=== PATIENT | female | born 1970 | race Caucasian/White ===

== ENCOUNTER 2016-11-02 11:43 | Emergency (ER) | payer OTHER ==
[~2016-11-02] VITALS: Ht 162.6 cm; Wt 95.3 kg
[~2016-11-02 11:43] MED LIST: ALBU1AER9 INH; LEVO150T9 PO; LEVO1TAB33 PO; VENL75CA PO
[2016-11-02 11:49] VITALS: BP 193/94; TEMP 37; Ht 162.6 cm; Wt 95.3 kg
[2016-11-02] MEDS ORDERED: ALBU18002 INH (12:06)
[2016-11-02 12:43] VITALS: PULSE 76; O2SAT 97
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
== END 2016-11-02 12:43 | disposition home or self-care (01) ==
LOC: C.EDB 11:44 → C.EDD 12:43
DX: R51 Headache (principal); M54.5 Low back pain; M54.2 Cervicalgia; V47.5XXA Car driver injured in collision with fixed or stationary object in traffic accident, initial encounter; J45.909 Unspecified asthma, uncomplicated; Z87.01 Personal history of pneumonia (recurrent)

== ENCOUNTER 2016-12-25 23:55 | Emergency (ER) | payer OTHER ==
[~2016-12-25] VITALS: Ht 162.6 cm; Wt 115.0 kg
[~2016-12-25 23:55] MED LIST changes: +ALBU18002 INH; -ALBU1AER9 INH; -LEVO1TAB33 PO
[2016-12-25 23:59] VITALS: TEMP 37.7; Ht 162.6 cm; Wt 115.0 kg
[2016-12-26] MEDS ORDERED: ACETAMINOPHEN 500 MG TAB PO STA (00:17)
[2016-12-26] MEDS ORDERED: SODIUM CHLORIDE 0.9% 1000ML 1,000 ML IV STA (00:17)
[2016-12-26] MEDS ORDERED: KETOROLAC TROMETHAMINE 30 MG/ML VIAL IV STA (00:17)
[2016-12-26 00:58] LABS: BASO % 0.4 %; BASO ABS # 0.02 K/uL (0-0.2); COMPLETE YES; EOS % 3.9 %; HEMATOCRIT 38.4 % (37-47); IG% 0.2 %; LYMPH ABS # 0.79 K/uL (1.2-3.4); MEAN CELL VOLUME 90.1 fL (80-100); MEAN CORPUSCULAR HEMOGLOBIN 31.5 pg (25-34); MEAN CORPUSCULAR HGB CONC 34.9 g/dl (32-36); MEAN PLATELET VOLUME 11.1 fL (7.4-10.4); MONO % 15.7 %; NEUT % 62.8 %; PLATELET COUNT 147 K/uL (130-400); RED BLOOD COUNT 4.26 M/uL (4.2-5.4); WHITE BLOOD COUNT 4.66 K/uL (4.8-10.8)
[2016-12-26 01:18] LABS: ALT/SGPT 43 U/L (12-78); AST/SGOT 22 U/L (15-37); BLOOD UREA NITROGEN 3 mg/dl (7-18); BUN/CREATININE RATIO 4.3 (10-20); CALCIUM 8.1 mg/dl (8.5-10.1); CARBON DIOXIDE 26 mmol/L (21-32); CHLORIDE 103 mmol/L (98-107); CREATININE 0.77 mg/dl (0.60-1.20); GLUCOSE 92 mg/dl (70-99); POTASSIUM 3.2 mmol/L (3.5-5.1); SODIUM 136 mmol/L (136-145)
[2016-12-26 01:23] LABS: ALB/GLOB RATIO 0.9 (0.9-2); ALKALINE PHOSPHATASE 118 U/L (45-117)
[2016-12-26 03:53] LABS: URINE APPEARANCE CLEAR (CLEAR); URINE BILIRUBIN NEG (NEG); URINE COLOR DK YELLOW; URINE EPITHELIAL CELL AUTO >30 /lpf (0-5); URINE NITRITE NEG (NEG); URINE PH 6.5 (4.5-7.5); URINE SPECIFIC GRAVITY 1.011 (1.000-1.030); UROBILINOGEN POS (NEG); ZZUR CULT IF INDIC CLEAN CATCH NO
[2016-12-26 03:56] LABS: MANUAL MICROSCOPIC REQUIRED? NO; REVIEW REQ? NO
--- NOTE | 2016-12-26 04:24 | EMERGENCY ROOM VISIT NOTE ---
History First contact with patient: 00:05 Chief Complaint: CHEST PAIN Stated Complaint: FEVER SINCE SAT 103, CHEST PAIN, DIZZY Nursing Triage Summary: patient reports sick since saturday,patient reports not eating,vomited once,patient reports chest pain since 0 History of Present Illness The patient is a 46 year old female who presents to the Emergency Room with complaints of fevers for the past 3 days. The patient states that she has been having fevers, decreased appetite and nausea for the past 3 days. She states that today, she developed pain across the chest and into the abdomen. She had one episode of vomiting a few days ago, but denies any vomiting at this time. She states it is a stabbing pain and goes from the left side of the chest into the upper abdomen and into the back. The fevers have been as high as 103.7F. She denies any headache, neck pain, shortness of breath, cough, urinary symptoms or changes in bowel movements. Review of Systems A complete 10 point review of systems was reviewed with the patient with pertinent positives and negatives as per history of present illness. All else were negative. Past Medical/Surgical History Medical Problems: (1) FAILED ABLATION Social History Smoking Status: Never Smoker Alcohol Use: none Marital Status: Occupation Status: employed Current/Historical Medications Scheduled Levothyroxine Sodium (Levothyroxine Sodium), 150 MCG PO QAM Venlafaxine Hcl (Effexor Xr), 75 MG PO DAILY Scheduled PRN Albuterol Sulfate (Proair Respiclick), 1-2 PUFFS INH Q4 PRN for SOB/Wheezing Allergies Coded Allergies: Thimerosal (Verified Allergy, Mild, eyes swelled shut for 3 days, 12/26/16) [place] (Verified Allergy, Unknown, SHORT NEEDLE P[place] BRANCHES, 12/26/16) Physical Exam Vital Signs Date Time Temp Pulse Resp B/P Pulse Ox O2 Delivery O2 Flow Rate FiO2 12/26/16 04:45 68 18 127/72 97 Room Air 12/26/16 02:28 76 18 138/77 98 Room Air 12/25/16 23:59 37.7 97 18 138/89 96 Room Air Physical Exam VITALS: Vitals are noted on the nurse's note and reviewed by myself. Vital signs stable. Temperature 37.7C GENERAL: This is a 46-year-old female, in no acute distress, nondiaphoretic, well-developed well-nourished. SKIN: The skin was without rashes. EARS: External auditory canals clear, tympanic membranes pearly diaz without erythema or effusion bilaterally. EYES: Pupils equal round and reactive to light and accommodation. Conjunctivae without injection, sclerae without icterus. MOUTH: Mucous membranes moist. Tonsils are not enlarged. Pharynx without erythema or exudate. NECK: Supple without nuchal rigidity. No lymphadenopathy. HEART: Regular rate and rhythm without murmurs gallops or rubs. LUNGS: Clear to auscultation bilaterally without wheezes, rales or rhonchi. No retractions or accessory muscle use. ABDOMEN: Positive bowel sounds x 4. Mild tenderness over the right upper quadrant. Negative Izquierdo sign. No guarding or rebound tenderness. NEURO: Patient was alert and oriented to person place and time. Medical Decision & Procedures ER Provider Diagnostic Interpretation: Chest x-ray interpretation: No infiltrates. No pneumothorax. No bony abnormalities. US RUQ: Echogenic hepatic parenchyma, suggesting fatty infiltration. Hepatomegaly. Suggestion of echogenic renal impairments. The due to medullary sponge kidney in the right clinical setting. Correlate for underlying renal disease. Mildly distended gallbladder, but no cough or bladder wall thickening or pericholecystic fluid. No gallstones. Remainder of examination is within normal limits. Radiologist: Landon Samuel MD Laboratory Results 12/26/16 00:35 Red Blood Count 4.26, Mean Corpuscular Volume 90.1, Mean Corpuscular Hemoglobin 31.5, Mean Corpuscular Hemoglobin Concent 34.9, Mean Platelet Volume 11.1, Neutrophils (%) (Auto) 62.8, Lymphocytes (%) (Auto) 17.0, Monocytes (%) (Auto) 15.7, Eosinophils (%) (Auto) 3.9, Basophils (%) (Auto) 0.4, Neutrophils # (Auto ) 2.93, Lymphocytes # (Auto) 0.79, Monocytes # (Auto) 0.73, Eosinophils # (Auto ) 0.18, Basophils # (Auto) 0.02 12/26/16 00:35 Test 12/26/16 00:35 12/26/16 03:14 White Blood Count 4.66 K/uL (4.8-10.8) Red Blood Count 4.26 M/uL (4.2-5.4) Hemoglobin 13.4 g/dL (12.0-16.0) Hematocrit 38.4 % (37-47) Mean Corpuscular Volume 90.1 fL (80-100) Mean Corpuscular Hemoglobin 31.5 pg (25-34) Mean Corpuscular Hemoglobin Concent 34.9 g/dl (32-36) Platelet Count 147 K/uL (130-400) Mean Platelet Volume 11.1 fL (7.4-10.4) Neutrophils (%) (Auto) 62.8 % Lymphocytes (%) (Auto) 17.0 % Monocytes (%) (Auto) 15.7 % Eosinophils (%) (Auto) 3.9 % Basophils (%) (Auto) 0.4 % Neutrophils # (Auto) 2.93 K/uL (1.4-6.5) Lymphocytes # (Auto) 0.79 K/uL (1.2-3.4) Monocytes # (Auto) 0.73 K/uL (0.11-0.59) Eosinophils # (Auto) 0.18 K/uL (0-0.5) Basophils # (Auto) 0.02 K/uL (0-0.2) RDW Standard Deviation 43.2 fL (36.4-46.3) RDW Coefficient of Variation 13.1 % (11.5-14.5) Immature Granulocyte % (Auto) 0.2 % Immature Granulocyte # (Auto) 0.01 K/uL (0.00-0.02) Anion Gap 7.0 mmol/L (3-11) Est Creatinine Clear Calc Drug Dose 112.4 ml/min Estimated GFR () 106.6 Estimated GFR (Non- 91.9 BUN/Creatinine Ratio 4.3 (10-20) Calcium Level 8.1 mg/dl (8.5-10.1) Total Bilirubin 1.2 mg/dl (0.2-1) Aspartate Amino Transf (AST/SGOT) 22 U/L (15-37) Alanine Aminotransferase (ALT/SGPT) 43 U/L (12-78) Alkaline Phosphatase 118 U/L (45-117) Troponin I < 0.015 ng/ml (0-0.045) Total Protein 6.8 gm/dl (6.4-8.2) Albumin 3.2 gm/dl (3.4-5.0) Globulin 3.6 gm/dl (2.5-4.0) Albumin/Globulin Ratio 0.9 (0.9-2) Lipase 75 U/L (73-393) Influenza Type A Antigen Neg for Influ A (NEG) Influenza Type B Antigen Neg for Influ B (NEG) Urine Color DK YELLOW Urine Appearance CLEAR (CLEAR) Urine pH 6.5 (4.5-7.5) Urine Specific [place] 1.011 (1.000-1.030) Urine Protein NEG (NEG) Urine Glucose (UA) NEG (NEG) Urine Ketones NEG (NEG) Urine Occult Blood NEG (NEG) Urine Nitrite NEG (NEG) Urine Bilirubin NEG (NEG) Urine Urobilinogen POS (NEG) Urine Leukocyte Esterase TRACE (NEG) Urine WBC (Auto) 1-5 /hpf (0-5) Urine RBC (Auto) 0-4 /hpf (0-4) Urine Hyaline Casts (Auto) 1-5 /lpf (0-5) Urine Epithelial Cells (Auto) >30 /lpf (0-5) Urine Bacteria (Auto) NEG (NEG) Urine Test NEG (NEG) Medications Administered Medications (Trade) Dose Ordered Sig/Neymar Route Start Time Stop Time Status Last Admin Dose Admin Ketorolac Tromethamine (Toradol Inj) 30 mg NOW STAT IV 12/26/16 00:17 12/26/16 00:20 DC 12/26/16 00:43 30 MG Acetaminophen 1000 mg 1,000 mg NOW STAT PO 12/26/16 00:17 12/26/16 00:20 DC 12/26/16 00:43 1,000 MG Sodium Chloride (Nss 1000ml) 1,000 ml @ 999 mls/hr Q1H1M STAT IV 12/26/16 00:17 12/26/16 01:17 DC 12/26/16 00:17 999 MLS/HR ECG Rate (beats per minute): 89 Rhythm: normal sinus Findings: no acute ischemic change, no ectopy Change: no significant change ED Course The patient was evaluated as above. Labs were drawn and IV access was obtained. Patient was medicated with 30 mg Toradol IV, 1 g Tylenol and 1 L normal saline solution. Patient was reevaluated and felt much better. Findings were discussed with the patient. Discharge instructions were reviewed with the patient. The patient verbalized understanding of my assessment and treatment plan and was discharged home in good condition. Medical Decision Differential diagnosis includes pneumonia, influenza, flulike symptoms, cough or disease, among others. The patient is a 46-year-old female who presents today complaining of fevers and chest discomfort. EKG was unremarkable. Troponin was not elevated. Labs revealed no leukocytosis, anemia or concerning electrolyte abnormalities. Due to slight right upper quadrant tenderness and slight elevation of LFTs, he called what her ultrasound was ordered. This was not suggestive of acute gallbladder disease. Urinalysis was not suggestive of infection. Influenza was negative. The patient likely has a flulike illness. The patient's case was reviewed with Dr. Chi, ED attending physician, who agreed with my assessment and treatment plan. Based on the patient's presentation and work up, I feel the patient is stable for outpatient treatment. The patient was educated to return to the emergency department for any worsening of their current condition or new/concerning symptoms. She will follow up with her PCP as needed. Impression Primary Impression: Flu-like symptoms Departure Information Dispostion Home / Self-Care Condition GOOD Referrals Alyce Grigsby.Tobias PA-C (PCP) Patient Instructions My [facility] Additional Instructions Rest and drink plenty of fluids. For pain/fever control, you can use the following [id number] medicines ( if >12 yo): - Regular strength (325mg/tab) Tylenol (acetaminophen) 2 tabs every 4-6 hours as needed. Do not exceed 12 tablets in a 24 hour period. Avoid taking more than 4 grams (4000 mg) of Tylenol per day. This includes any other sources of acetaminophen you may take on a regular basis. - Regular strength (200 mg/tab) Advil (ibuprofen) 1-2 tabs every 4-6 hours as needed. Do not exceed a dose of 3200 mg per day. Follow-up primary care provider this week. Return to the emergency department with any worsening or new/concerning symptoms.
[2016-12-26 04:45] VITALS: BP 127/72; PULSE 68; O2SAT 97
--- NOTE | 2016-12-26 06:41 | DIAGNOSTIC IMAGING REPORT ---
CHEST ONE VIEW PORTABLE CLINICAL HISTORY: Atypical chest pain. Fever. COMPARISON STUDY: 05/10/2016 FINDINGS: The heart is borderline enlarged. There is no failure. There is no lobar consolidation. There is been resolution of the right midlung zone airspace opacities. Minimal increased markings the right lung base are likely atelectatic. No pleural effusions are visualized.[ IMPRESSION: 1. Interval resolution of the right midlung zone airspace opacities 2. Minimally increased right basilar markings, likely atelectatic although a minimal inflammatory process could appear similar Electronically signed by: Gage Cassidy M.D. 12/26/2016 6:39 AM Dictated Date/Time: 12/26/2016 6:38 AM
--- NOTE | 2016-12-26 06:58 | DIAGNOSTIC IMAGING REPORT ---
BILIARY ULTRASOUND CLINICAL HISTORY: Upper abdominal pain vomiting, fever. COMPARISON STUDY: No previous studies for comparison. FINDINGS: The pancreas appears normal as visualized. The liver appears normal. There is no ductal dilatation. The common bile duct measures 3 mm. The gallbladder appears sonographically normal. There is no hydronephrosis. There is increased echogenicity within the renal pyramids. Medullary sponge kidney cannot be excluded. IMPRESSION: 1. Ultrasonographically normal gallbladder, liver, and pancreas. 2. No evidence of ductal dilatation 3. Somewhat echogenic renal pyramids. Medullary sponge kidney cannot be excluded. Electronically signed by: Gage Cassidy M.D. 12/26/2016 6:56 AM Dictated Date/Time: 12/26/2016 6:54 AM
== END 2016-12-26 05:09 | disposition home or self-care (01) ==
LOC: C.EDB 23:56
DX: R50.9 Fever, unspecified (principal); R11.0 Nausea; R63.0 Anorexia; R07.9 Chest pain, unspecified; R10.9 Unspecified abdominal pain; Z79.899 Other long term (current) drug therapy

== ENCOUNTER 2017-08-23 13:35 | Emergency (ER) | payer OTHER ==
[~2017-08-23] VITALS: Ht 162.6 cm; Wt 123.0 kg
[~2017-08-23 13:35] MED LIST changes: -VENL75CA PO; +VENL75CA88 PO
[2017-08-23 13:38] VITALS: TEMP 37.3; Ht 162.6 cm; Wt 123.0 kg
[2017-08-23] MEDS ORDERED: ONDANSETRON INJ 2 MG/ML 2 ML VIAL IV STA (13:51)
[2017-08-23] MEDS ORDERED: SODIUM CHLORIDE 0.9% 1000ML 1,000 ML IV STA (13:51)
[2017-08-23] MEDS ORDERED: HYDROmorphone INJ 0.5 MG/0.5 ML SYR IV STA (13:51)
[2017-08-23] MEDS ORDERED: HYDR-3124 PO (13:55)
[2017-08-23] MEDS ORDERED: SIMV20TA2 PO (13:55)
[2017-08-23] MEDS ORDERED: MONT1TAB3 PO (13:55)
[2017-08-23 14:04] VITALS: O2SAT 95
--- NOTE | 2017-08-23 14:07 | EMERGENCY ROOM VISIT NOTE ---
History First contact with patient: 13:40 Chief Complaint: ABDOMINAL PAIN Stated Complaint: R SIDE PAIN, RADIATES TO BELLY BUTTON History of Present Illness The patient is a 47 year old female who presents to the Emergency Room via private vehicle accompanied by daughter with complaints of "right upper quadrant pain, radiates to belly button". The patient states that she had a HIDA scan in the past with a functional gallbladder 13%. She states that she follows with Dr. Winkler of [facility] surgery. She states that she has felt nauseous for months, and this past Saturday ate at the [employer]. She states she felt bloated afterwards, and then ate pizza. She states that yesterday morning she woke with dry heaves, feeling a lump in her throat in the right upper quadrant pain that radiated to her abdomen centrally. She states she tries to eat and drink but is very nauseous. There is also diarrhea. She rates her overall rate upper quadrant pain as a 8/10. She denies chance of . She denies any chest pain or shortness of breath. Review of Systems A complete 10-point Review of Systems was discussed with the patient, with pertinent positives and negatives listed in the History of Present Illness. All remaining Review of Systems questions can be considered negative unless otherwise specified. Past Medical/Surgical History Medical Problems: (1) FAILED ABLATION Social History Smoking Status: Former Smoker Alcohol Use: none Marital Status: Occupation Status: employed Current/Historical Medications Scheduled Amoxicillin & Pot Clavulanate (Augmentin 875-125 mg), 1 TAB PO BID Hydroxyzine Hcl (Atarax), 25 MG PO HS Levothyroxine Sodium (Levothyroxine Sodium), 150 MCG PO QAM Montelukast Sodium (Singulair), 10 MG PO HS Ondasetron Odt (Zofran Odt), 4 MG SL Q6H Simvastatin (Zocor), 20 MG PO HS Venlafaxine Hcl (Effexor Xr), 75 MG PO DAILY Physical Exam Vital Signs Date Time Temp Pulse Resp B/P (MAP) Pulse Ox O2 Delivery O2 Flow Rate FiO2 08/23/17 17:40 80 18 97 08/23/17 17:10 80 21 97 08/23/17 16:40 81 17 97 08/23/17 15:40 79 17 08/23/17 15:35 79 22 08/23/17 15:05 78 18 08/23/17 14:55 141/87 08/23/17 14:25 80 17 141/86 95 Room Air 08/23/17 14:22 141/86 08/23/17 14:06 84 08/23/17 14:05 84 24 94 08/23/17 14:04 95 Room Air 08/23/17 13:38 37.3 94 16 153/101 94 Physical Exam VITAL SIGNS - Vital signs and nursing notes were reviewed. Stable. Hypertensive. Saturating on room air 94%. GENERAL -47-year-old female appearing her stated age who is in no acute distress. Communicates well with provider and answers questions appropriately. SKIN - Without rashes. No petechial rashes. HEAD - NC/AT. EYES - Sclera anicteric. EARS - No deformities of external structures noted on gross examination bilaterally. NOSE - Midline and without cyanosis. No epistaxis or purulent drainage noted. MOUTH/OROPHARYNX - Without perioral cyanosis. NECK - Neck with FROM. Supple to palpation. LUNGS - Chest wall symmetric without accessory muscle use, intercostals retractions, or central cyanosis. Normal vesicular breath sounds CTA B/L. No wheezes, rales, or rhonchi appreciated. CARDIAC - RRR with S1/S2. No murmur, rubs, or gallops appreciated. ABDOMEN - Abdominal contour normal without pulsations or visible masses. BS normoactive all four quadrants. Exquisite right upper quadrant tenderness decreased radiation to the mid abdomen. No palpable masses, hepatosplenomegaly , or ascites noted. EXTREMITIES - No clubbing or peripheral cyanosis. No pretibial edema present. +5 /5 strength noted in UE/LE bilaterally. NEUROLOGIC - Cranial nerves II through XII grossly intact. Sensory intact to light touch throughout. PSYCH - A&O, and cooperates fully with examiner. Pt is very pleasant and interacts well with examiner. Medical Decision & Procedures ER Provider Diagnostic Interpretation: GALLBLADDER-ABD LIMITED CLINICAL HISTORY: 47 years-old Female presenting with RUQ abdominal pain. TECHNIQUE: Real-time grayscale and limited color Doppler ultrasound imaging of the abdomen limited to the right upper quadrant was performed. COMPARISON: 12/26/2016. FINDINGS: Pancreas: Visualized portions of the pancreatic head and body normal. Liver: Hyperechogenic parenchyma with heterogeneous echotexture, likely indicating fibrosis or steatosis. The liver measures 18.8 cm in maximal sagittal dimension. No sonographic evidence of hepatic mass. Main portal vein patent with normal directional flow. Biliary: No intrahepatic biliary ductal dilatation. Common bile duct measures up to 4 mm in diameter. Gallbladder: No evidence of gallstones, gallbladder wall thickening, gallbladder distention, or pericholecystic fluid or inflammatory change. Right kidney: Hyperechogenicity of the renal appearance. 4 mm hyperechogenic focus at the interpolar region with twinkling artifact suggesting calculus. No hydronephrosis. Ascites: None. IMPRESSION: 1. Hyperechogenic and heterogeneous hepatic parenchyma suggest underlying fibrosis or steatosis. Correlate with liver function enzymes to exclude steatohepatitis. 2. No cholelithiasis or biliary ductal dilatation. 3. Right renal calculus. 4. Echogenic renal pyramids suggest medullary nephrocalcinosis, which can be due to medullary sponge kidney, hyperparathyroidism, renal tubular acidosis (type I), and sarcoidosis among many additional etiologies. Electronically signed by: Adam Salinas M.D. 08/23/2017 2:59 PM Dictated Date/Time: 08/23/2017 2:55 PM CHEST ONE VIEW PORTABLE HISTORY: Right upper quadrant abdominal pain. COMPARISON: Chest 12/26/2016. FINDINGS: The heart remains mildly enlarged. The lungs are clear. No pleural effusions. No pneumothorax. IMPRESSION: Stable mild cardiomegaly. No acute process within the chest. Electronically signed by: Ezra Roach M.D. 08/23/2017 2:29 PM Dictated Date/Time: 08/23/2017 2:27 PM [~ rep ct add3]] ABD/PELVIS IV CONTRAST ONLY CT DOSE: 1035.98 mGycm HISTORY: Pain. Nausea. RUQ abd pain TECHNIQUE: Multiaxial CT images of the abdomen and pelvis were performed following the use of intravenous contrast. A dose lowering technique was utilized adhering to the principles of ALARA. COMPARISON STUDY: None. FINDINGS: Lung bases are clear. Liver spleen and pancreas are unremarkable. Gallbladder is negative for distention. Kidneys negative for hydronephrosis. Nonobstructive bowel pattern. Several diverticuli with minimal associated infiltrative change of the pericecal fat involving the cecum and right upper quadrant. A low-grade mild cecal diverticulitis must be considered. No evidence for abscess collection or obstruction. Several small reactive mesenteric nodes. 1.4 cm left ovarian cyst. No significant free fluid within the pelvic cul-de-sac. Lateral midline. IMPRESSION: 1. Minimal low-grade cecal/ascending colon diverticulitis. 2. No evidence for abscess collection or obstruction. 3. 4.4 cm left ovarian cyst. The above report was generated using voice recognition software. It may contain grammatical, syntax or spelling errors. Electronically signed by: Abdirizak Orellana M.D. 08/23/2017 4:26 PM Dictated Date/Time: 08/23/2017 4:22 PM Laboratory Results 08/23/17 14:08 Red Blood Count 4.12, Mean Corpuscular Volume 92.2, Mean Corpuscular Hemoglobin 31.8, Mean Corpuscular Hemoglobin Concent 34.5, Mean Platelet Volume 9.9, Neutrophils (%) (Auto) 58.0, Lymphocytes (%) (Auto) 25.1, Monocytes (%) (Auto) 15.6, Eosinophils (%) (Auto) 0.9, Basophils (%) (Auto) 0.2, Neutrophils # (Auto ) 2.45, Lymphocytes # (Auto) 1.06, Monocytes # (Auto) 0.66, Eosinophils # (Auto ) 0.04, Basophils # (Auto) 0.01 08/23/17 14:08 Test 08/23/17 14:08 White Blood Count 4.23 K/uL (4.8-10.8) Red Blood Count 4.12 M/uL (4.2-5.4) Hemoglobin 13.1 g/dL (12.0-16.0) Hematocrit 38.0 % (37-47) Mean Corpuscular Volume 92.2 fL (80-100) Mean Corpuscular Hemoglobin 31.8 pg (25-34) Mean Corpuscular Hemoglobin Concent 34.5 g/dl (32-36) Platelet Count 180 K/uL (130-400) Mean Platelet Volume 9.9 fL (7.4-10.4) Neutrophils (%) (Auto) 58.0 % Lymphocytes (%) (Auto) 25.1 % Monocytes (%) (Auto) 15.6 % Eosinophils (%) (Auto) 0.9 % Basophils (%) (Auto) 0.2 % Neutrophils # (Auto) 2.45 K/uL (1.4-6.5) Lymphocytes # (Auto) 1.06 K/uL (1.2-3.4) Monocytes # (Auto) 0.66 K/uL (0.11-0.59) Eosinophils # (Auto) 0.04 K/uL (0-0.5) Basophils # (Auto) 0.01 K/uL (0-0.2) RDW Standard Deviation 45.2 fL (36.4-46.3) RDW Coefficient of Variation 13.5 % (11.5-14.5) Immature Granulocyte % (Auto) 0.2 % Immature Granulocyte # (Auto) 0.01 K/uL (0.00-0.02) Anion Gap 8.0 mmol/L (3-11) Est Creatinine Clear Calc Drug Dose 129.1 ml/min Estimated GFR () 119.3 Estimated GFR (Non- 102.9 BUN/Creatinine Ratio 14.0 (10-20) Calcium Level 8.0 mg/dl (8.5-10.1) Total Bilirubin 1.3 mg/dl (0.2-1) Aspartate Amino Transf (AST/SGOT) 12 U/L (15-37) Alanine Aminotransferase (ALT/SGPT) 19 U/L (12-78) Alkaline Phosphatase 76 U/L (45-117) Troponin I < 0.015 ng/ml (0-0.045) Total Protein 6.8 gm/dl (6.4-8.2) Albumin 3.5 gm/dl (3.4-5.0) Globulin 3.3 gm/dl (2.5-4.0) Albumin/Globulin Ratio 1.1 (0.9-2) Lipase 119 U/L (73-393) Medications Administered Medications (Trade) Dose Ordered Sig/Neymar Route Start Time Stop Time Status Last Admin Dose Admin Sodium Chloride 1,000 ml @ 999 mls/hr Q1H1M STAT IV 08/23/17 13:51 08/23/17 14:51 DC 08/23/17 14:24 999 MLS/HR Hydromorphone HCl (Dilaudid Inj) 0.5 mg NOW STAT IV 08/23/17 13:51 08/23/17 13:53 DC 08/23/17 14:24 0.5 MG Ondansetron HCl (Zofran Inj) 4 mg NOW STAT IV 08/23/17 13:51 08/23/17 13:53 DC 08/23/17 14:24 4 MG Sodium Chloride 500 ml @ 999 mls/hr Q31M STAT IV 08/23/17 16:39 08/23/17 17:09 DC 08/23/17 16:55 999 MLS/HR Amoxicillin/ Clavulanate Potassium (Augmentin 875MG Home Pack) 1 homepack UD STAT PO 08/23/17 17:47 08/23/17 17:48 DC 08/23/17 18:11 1 HOMEPACK Ondansetron HCl (ZOFRAN ODT 4MG Home Pack) 1 homepack UD STAT PO 08/23/17 17:47 08/23/17 17:48 DC 08/23/17 18:11 1 HOMEPACK Medical Decision Patient was seen and evaluated as above. She presents to us today with abdominal pain. Right upper quadrant Ultrasound and chest x-ray were obtained and essentially negative for acute process. Decision was made to obtain CT scan which reveals diverticulitis. No concern of leukocytosis or anemia. Metabolic process reveals no evidence of kidney or liver failure. Bilirubin slightly elevated. She'll be treated outpatient with Augmentin. She is to return with worsening as she was thoroughly educated upon. She is to follow-up with her family doctor for the diverticulitis, as well as the other incidental findings on her imaging today. She was given 1.5 L of normal saline. She'll be sent home with a prescription of Augmentin as well as Zofran. She was educated upon management, educated upon worrisome symptoms in which to return, had questions answered at discharge, and was discharged home in good condition. Bedside EKG was performed secondary to location of the pain which reveals normal sinus rhythm. No ectopy or ischemic change. In evaluation treatment this patient the following differential diagnoses were entertained: IN, PE, cold bladder etiologies, cholangitis, ascending cholangitis , pancreatitis, diverticulitis, GERD, among others. Impression Primary Impression: Diverticulitis Additional Impression: Hypokalemia Departure Information Dispostion Home / Self-Care Condition GOOD Prescriptions Ondasetron Odt (ZOFRAN ODT) 4 Mg Tab 4 MG SL Q6H for Nausea, #15 TAB Prov: Wesly Gustafson PA-C 08/23/17 Amoxicillin & Pot Clavulanate (Augmentin 875-125 mg) 1 Tab Tab 1 TAB PO BID for 10 Days, #20 TAB Prov: Wesly Gustafson PA-C 08/23/17 Referrals Alyce Grigsby.Tobias PA-C (PCP) Patient Instructions Diverticulitis Dc, ED Diverticulitis, Hypokalemia Dc, [facility] Additional Instructions You have been treated in the Emergency Department your Abdominal Pain. Laboratory results and imaging studies have revealed diverticulitis. You have been prescribed Zofran to be used for any nausea or vomiting. Take as prescribed. Augmentin 1 tablet every 12 hours for infection in abdomen. For pain control, you can use the following [id number] medicines (if >12 yo): - Regular strength (325mg/tab) Tylenol (acetaminophen) 2 tabs every 4-6 hours as needed. Do not exceed 12 tablets in a 24 hour period. Avoid taking more than 3 grams (3000 mg) of Tylenol per day. This includes any other sources of acetaminophen you may take on a regular basis. - Regular strength (200 mg/tab) Advil (ibuprofen) 1-2 tabs every 4-6 hours as needed. Do not exceed a dose of 3200 mg per day. Drink plenty of water and stay well hydrated. As with any trip to the Emergency Department, you should follow-up with your Primary Care Provider from today's visit. Also please follow up for the other findings as listed below on your xray, ultrasound and ct scan. Return to the emergency department if your symptoms persist despite treatment plan outlined above or if the following symptoms occur: increased fevers, chills , worsening nausea/vomiting, blood in your stool or urine. GALLBLADDER-ABD LIMITED CLINICAL HISTORY: 47 years-old Female presenting with RUQ abdominal pain. TECHNIQUE: Real-time grayscale and limited color Doppler ultrasound imaging of the abdomen limited to the right upper quadrant was performed. COMPARISON: 12/26/2016. FINDINGS: Pancreas: Visualized portions of the pancreatic head and body normal. Liver: Hyperechogenic parenchyma with heterogeneous echotexture, likely indicating fibrosis or steatosis. The liver measures 18.8 cm in maximal sagittal dimension. No sonographic evidence of hepatic mass. Main portal vein patent with normal directional flow. Biliary: No intrahepatic biliary ductal dilatation. Common bile duct measures up to 4 mm in diameter. Gallbladder: No evidence of gallstones, gallbladder wall thickening, gallbladder distention, or pericholecystic fluid or inflammatory change. Right kidney: Hyperechogenicity of the renal appearance. 4 mm hyperechogenic focus at the interpolar region with twinkling artifact suggesting calculus. No hydronephrosis. Ascites: None. IMPRESSION: 1. Hyperechogenic and heterogeneous hepatic parenchyma suggest underlying fibrosis or steatosis. Correlate with liver function enzymes to exclude steatohepatitis. 2. No cholelithiasis or biliary ductal dilatation. 3. Right renal calculus. 4. Echogenic renal pyramids suggest medullary nephrocalcinosis, which can be due to medullary sponge kidney, hyperparathyroidism, renal tubular acidosis (type I), and sarcoidosis among many additional etiologies. Electronically signed by: Adam Salinas M.D. 08/23/2017 2:59 PM Dictated Date/Time: 08/23/2017 2:55 PM CHEST ONE VIEW PORTABLE HISTORY: Right upper quadrant abdominal pain. COMPARISON: Chest 12/26/2016. FINDINGS: The heart remains mildly enlarged. The lungs are clear. No pleural effusions. No pneumothorax. IMPRESSION: Stable mild cardiomegaly. No acute process within the chest. Electronically signed by: Ezra Roach M.D. 08/23/2017 2:29 PM Dictated Date/Time: 08/23/2017 2:27 PM [~ rep ct add3]] ABD/PELVIS IV CONTRAST ONLY CT DOSE: 1035.98 mGycm HISTORY: Pain. Nausea. RUQ abd pain TECHNIQUE: Multiaxial CT images of the abdomen and pelvis were performed following the use of intravenous contrast. A dose lowering technique was utilized adhering to the principles of ALARA. COMPARISON STUDY: None. FINDINGS: Lung bases are clear. Liver spleen and pancreas are unremarkable. Gallbladder is negative for distention. Kidneys negative for hydronephrosis. Nonobstructive bowel pattern. Several diverticuli with minimal associated infiltrative change of the pericecal fat involving the cecum and right upper quadrant. A low-grade mild cecal diverticulitis must be considered. No evidence for abscess collection or obstruction. Several small reactive mesenteric nodes. 1.4 cm left ovarian cyst. No significant free fluid within the pelvic cul-de-sac. Lateral midline. IMPRESSION: 1. Minimal low-grade cecal/ascending colon diverticulitis. 2. No evidence for abscess collection or obstruction. 3. 4.4 cm left ovarian cyst. The above report was generated using voice recognition software. It may contain grammatical, syntax or spelling errors. Electronically signed by: Abdirizak Orellana M.D. 08/23/2017 4:26 PM Dictated Date/Time: 08/23/2017 4:22 PM Problem Qualifiers
[2017-08-23 14:18] LABS: BASO % 0.2 %; BASO ABS # 0.01 K/uL (0-0.2); EOS % 0.9 %; EOS ABS # 0.04 K/uL (0-0.5); HEMOGLOBIN 13.1 g/dL (12.0-16.0); IG# 0.01 K/uL (0.00-0.02); LYMPH % 25.1 %; LYMPH ABS # 1.06 K/uL (1.2-3.4); MEAN CELL VOLUME 92.2 fL (80-100); MEAN CORPUSCULAR HEMOGLOBIN 31.8 pg (25-34); MEAN CORPUSCULAR HGB CONC 34.5 g/dl (32-36); MEAN PLATELET VOLUME 9.9 fL (7.4-10.4); MONO % 15.6 %; MONO ABS # 0.66 K/uL (0.11-0.59); NEUT ABS # 2.45 K/uL (1.4-6.5); PLATELET COUNT 180 K/uL (130-400); RED CELL DISTRIBUTION WIDTH CV 13.5 % (11.5-14.5); RED CELL DISTRIBUTION WIDTH SD 45.2 fL (36.4-46.3); WHITE BLOOD COUNT 4.23 K/uL (4.8-10.8)
--- NOTE | 2017-08-23 14:31 | DIAGNOSTIC IMAGING REPORT ---
CHEST ONE VIEW PORTABLE HISTORY: Right upper quadrant abdominal pain. COMPARISON: Chest 12/26/2016. FINDINGS: The heart remains mildly enlarged. The lungs are clear. No pleural effusions. No pneumothorax. IMPRESSION: Stable mild cardiomegaly. No acute process within the chest. Electronically signed by: Ezra Roach M.D. 08/23/2017 2:29 PM Dictated Date/Time: 08/23/2017 2:27 PM
[2017-08-23 14:40] LABS: ALBUMIN 3.5 gm/dl (3.4-5.0); ALT/SGPT 19 U/L (12-78); BLOOD UREA NITROGEN 10 mg/dl (7-18); CARBON DIOXIDE 23 mmol/L (21-32); CREATININE 0.69 mg/dl (0.60-1.20); GLUCOSE 89 mg/dl (70-99); LIPASE 119 U/L (73-393); POTASSIUM 3.3 mmol/L (3.5-5.1); SODIUM 138 mmol/L (136-145)
[2017-08-23 14:44] LABS: ALKALINE PHOSPHATASE 76 U/L (45-117); AST/SGOT 12 U/L (15-37); TOTAL PROTEIN 6.8 gm/dl (6.4-8.2)
[2017-08-23 14:55] VITALS: BP 141/87
--- NOTE | 2017-08-23 15:00 | DIAGNOSTIC IMAGING REPORT ---
GALLBLADDER-ABD LIMITED CLINICAL HISTORY: 47 years-old Female presenting with RUQ abdominal pain. TECHNIQUE: Real-time grayscale and limited color Doppler ultrasound imaging of the abdomen limited to the right upper quadrant was performed. COMPARISON: 12/26/2016. FINDINGS: Pancreas: Visualized portions of the pancreatic head and body normal. Liver: Hyperechogenic parenchyma with heterogeneous echotexture, likely indicating fibrosis or steatosis. The liver measures 18.8 cm in maximal sagittal dimension. No sonographic evidence of hepatic mass. Main portal vein patent with normal directional flow. Biliary: No intrahepatic biliary ductal dilatation. Common bile duct measures up to 4 mm in diameter. Gallbladder: No evidence of gallstones, gallbladder wall thickening, gallbladder distention, or pericholecystic fluid or inflammatory change. Right kidney: Hyperechogenicity of the renal appearance. 4 mm hyperechogenic focus at the interpolar region with twinkling artifact suggesting calculus. No hydronephrosis. Ascites: None. IMPRESSION: 1. Hyperechogenic and heterogeneous hepatic parenchyma suggest underlying fibrosis or steatosis. Correlate with liver function enzymes to exclude steatohepatitis. 2. No cholelithiasis or biliary ductal dilatation. 3. Right renal calculus. 4. Echogenic renal pyramids suggest medullary nephrocalcinosis, which can be due to medullary sponge kidney, hyperparathyroidism, renal tubular acidosis (type I), and sarcoidosis among many additional etiologies. Electronically signed by: Adam Salinas M.D. 08/23/2017 2:59 PM Dictated Date/Time: 08/23/2017 2:55 PM
[2017-08-23] MEDS ORDERED: OPTIRAY 320 IV PRN (16:00)
--- NOTE | 2017-08-23 16:28 | DIAGNOSTIC IMAGING REPORT ---
ABD/PELVIS IV CONTRAST ONLY CT DOSE: 1035.98 mGycm HISTORY: Pain. Nausea. RUQ abd pain TECHNIQUE: Multiaxial CT images of the abdomen and pelvis were performed following the use of intravenous contrast. A dose lowering technique was utilized adhering to the principles of ALARA. COMPARISON STUDY: None. FINDINGS: Lung bases are clear. Liver spleen and pancreas are unremarkable. Gallbladder is negative for distention. Kidneys negative for hydronephrosis. Nonobstructive bowel pattern. Several diverticuli with minimal associated infiltrative change of the pericecal fat involving the cecum and right upper quadrant. A low-grade mild cecal diverticulitis must be considered. No evidence for abscess collection or obstruction. Several small reactive mesenteric nodes. 1.4 cm left ovarian cyst. No significant free fluid within the pelvic cul-de-sac. Lateral midline. IMPRESSION: 1. Minimal low-grade cecal/ascending colon diverticulitis. 2. No evidence for abscess collection or obstruction. 3. 4.4 cm left ovarian cyst. The above report was generated using voice recognition software. It may contain grammatical, syntax or spelling errors. Electronically signed by: Abdirizak Orellana M.D. 08/23/2017 4:26 PM Dictated Date/Time: 08/23/2017 4:22 PM
[2017-08-23] MEDS ORDERED: SODIUM CHLORIDE 0.9% 500ML 500 ML IV STA (16:39)
[2017-08-23] MEDS ORDERED: ONDA4TAB10 SL (17:09)
[2017-08-23] MEDS ORDERED: AMOX875T PO (17:09)
[2017-08-23 17:40] VITALS: PULSE 80; O2SAT 97
[2017-08-23] MEDS ORDERED: ONDANSETRON HOME PACK 4MG OD TAB PO STA (17:47)
[2017-08-23] MEDS ORDERED: AMOXICIL/CLAVU 875MG HOME PACK PO STA (17:47)
== END 2017-08-23 18:10 | disposition home or self-care (01) ==
LOC: C.EDB 13:36 → C.EDC 18:10
DX: K57.92 Diverticulitis of intestine, part unspecified, without perforation or abscess without bleeding (principal); E87.6 Hypokalemia; Z87.891 Personal history of nicotine dependence; Z79.899 Other long term (current) drug therapy

== ENCOUNTER 2017-09-05 16:34 | Emergency (ER) | payer OTHER ==
[~2017-09-05] VITALS: Ht 162.6 cm; Wt 123.6 kg
[~2017-09-05 16:34] MED LIST changes: -ALBU18002 INH; +HYDR-3124 PO; +MONT1TAB3 PO; +ONDA4TAB10 SL; +SIMV20TA2 PO; +VENL75CA PO; -VENL75CA88 PO
[2017-09-05 16:37] VITALS: TEMP 36.7; Ht 162.6 cm; Wt 123.6 kg
[2017-09-05] MEDS ORDERED: ONDA4TAB10 SL (16:50)
[2017-09-05] MEDS ORDERED: POTA75TA PO (16:50)
[2017-09-05] MEDS ORDERED: DIPHTHERIA/TETANUS/PERTUSSIS 0.5 ML SYR/VIAL IM. ONE (17:15)
[2017-09-05] MEDS ORDERED: XYLOCAINE 1%/SOD BICARB 20 ML VIAL INFIL ONE (17:15)
--- NOTE | 2017-09-05 17:16 | EMERGENCY ROOM VISIT NOTE ---
ED Visit Note First contact with patient: 16:58 CHIEF COMPLAINT: Finger laceration HISTORY OF PRESENT ILLNESS: This 47-year-old female patient presents to the emergency department 1 hour after cutting the left fourth finger on a copper pipe. The bleeding has not stopped. Denies weakness or numbness of the finger. The patient has full range of motion of the fingers. The patient rates the pain as minimal and 2/10. The patient denies any other injuries. The patient's tetanus shot is not up to date. REVIEW OF SYSTEMS: A 6 system review of systems was completed with positives and pertinent negatives listed in the HPI. ALLERGIES: Thimerosal MEDICATIONS: Reviewed PMH: Asthma SOCIAL HISTORY: Denies tobacco or EtOH use PHYSICAL EXAM: Vital Signs: Reviewed Nurse's notes, vital signs stable. GENERAL : 47-year-old female, in no acute distress, well developed, well nourished. SKIN: There is a 1 cm, v-shaped flap like laceration on the lateral aspect of the distal fourth finger. There is mild oozing of blood. No foreign cereal in the wound. It appears clean. Full flexion and extension. Capillary refills less than 2 seconds. Sensation in the distal aspect of the finger is intact. EMERGENCY DEPARTMENT COURSE: I examined the patient. An x-ray was performed and reviewed. IMPRESSION: Soft tissue laceration. No acute bony abnormality. The above report was generated using voice recognition software. It may contain grammatical, syntax or spelling errors. Electronically signed by: Abdirizak Orellana M.D. 09/05/2017 5:36 PM Dictated Date/Time: 09/05/2017 5:35 PM Verbal consent was obtained to perform the procedure. Using sterile technique the wound was cleansed with Betadine. 3 ml of 1% buffered lidocaine was used to perform a digital block to anesthetize the patient. The area was sterilely draped. Once the patient was anesthetized, the wound was copiously irrigated under pressure with sterile saline. The wound was explored and there were no deep structures injured. The laceration was repaired using 4 simple interrupted 5-0 nylon sutures. The patient tolerated the procedure well. Hemostasis was achieved. The area was cleaned with sterile saline and dressed with bacitracin ointment and bandage. The patient was given a tetanus booster. The patient was discharged home in good condition. DIAGNOSIS: Finger laceration DISCHARGE INSTRUCTIONS & TREATMENT: Keep wound clean. It is okay to gently wash the area with soapy water. Do not submerse it in water for long periods of time such as swimming, going in hot tubs or taking baths until the sutures come out. Do not allow any crusting or dried blood to accumulate on sutures. If this occurs, use a 1:1 solution of hydrogen peroxide/water on a Q-tip to clean the wound. Use an antibiotic ointment for 3-4 days, then let wound dry. Suture removal in 14 days. Return sooner for any signs of infection (increasing redness, swelling, drainage). Ice and elevate for swelling and pain. Ibuprofen 600 mg and Tylenol 1000 mg every 6 hrs for pain. This chart was completed in part utilizing [employer] Speech Voice Recognition software. Attempts were made to minimize the grammatical errors, random word insertions, pronoun errors and incomplete sentences. Any formal questions or concerns about the content, text or information contained within the body of this dictation should be directly addressed to the provider for clarification.
--- NOTE | 2017-09-05 17:37 | DIAGNOSTIC IMAGING REPORT ---
L FINGER(S) MIN 2 VIEWS ROUTINE CLINICAL HISTORY: L 4th finger lac with copper pipe trauma. Laceration. COMPARISON: None. DISCUSSION: No acute bony abnormality. Soft tissue laceration and or edema adjacent to the distal phalanx fourth finger. No cortical abnormality. No radiopaque foreign body. IMPRESSION: Soft tissue laceration. No acute bony abnormality. The above report was generated using voice recognition software. It may contain grammatical, syntax or spelling errors. Electronically signed by: Abdirizak Orellana M.D. 09/05/2017 5:36 PM Dictated Date/Time: 09/05/2017 5:35 PM
[2017-09-05 18:35] VITALS: BP 130/75; PULSE 72; O2SAT 99
== END 2017-09-05 18:36 | disposition home or self-care (01) ==
LOC: C.EDB 16:35 → C.EDD 18:36
DX: S61.215A Laceration without foreign body of left ring finger without damage to nail, initial encounter (principal); W45.8XXA Other foreign body or object entering through skin, initial encounter; J45.909 Unspecified asthma, uncomplicated; Z23 Encounter for immunization

== ENCOUNTER → 2017-11-15 | Outpatient (CLI) | payer OTHER ==
[~2017-11-15] MED LIST changes: +POTA75TA PO
== END | disposition home or self-care (01) ==
LOC: C.LAB1850 12:05
PROVIDERS: ATTEND Internal Medicine Endocrinology, Diabetes & Metabolism
DX: E03.9 Hypothyroidism, unspecified (principal)